=== PATIENT | male | born 1975 | race Caucasian/White ===

== ENCOUNTER 2023-11-01 11:34 | Emergency (ER) | payer BC ==
[~2023-11-01] VITALS: Ht 170.2 cm; Wt 64.0 kg
[2023-11-01 12:02] VITALS: O2SAT 100
[2023-11-01] MEDS: IBUPROFEN 600MG TABLET PO STA (13:26)
[2023-11-01] MEDS ORDERED: NAPR-681 PO (14:26)
[2023-11-01 15:05] VITALS: BP 125/62; PULSE 88; RESP 18; TEMP 97.9
== END 2023-11-01 15:07 | disposition home or self-care (01) ==
LOC: ER 11:34
DX: S93.601A Unspecified sprain of right foot, initial encounter (principal); E11.9 Type 2 diabetes mellitus without complications; I10 Essential (primary) hypertension; W50.2XXA Accidental twist by another person, initial encounter; Y93.89 Activity, other specified; Y92.89 Other specified places as the place of occurrence of the external cause; Y99.8 Other external cause status
CPT/HCPCS: 73610; 73630; 99284

== ENCOUNTER 2023-11-24 14:37 | Emergency (ER) | payer SELFPAY ==
[~2023-11-24] VITALS: Ht 167.6 cm; Wt 70.0 kg
[~2023-11-24 14:37] MED LIST: NAPR-681 PO
[2023-11-24 14:41] VITALS: O2SAT 100
[2023-11-24] MEDS ORDERED: TETANUS, DIPHTHERIA, PERTUSSIS VAC/PF 0.5ML (>10YR OLD) IM ONE (15:30)
[2023-11-24] MEDS ORDERED: IBUPROFEN 600MG TABLET PO ONE (15:30)
[2023-11-24] MEDS ORDERED: CEPH500T MT (16:03)
[2023-11-24] MEDS ORDERED: IBUP-2029 PO (16:03)
[2023-11-24] MEDS ORDERED: NEOM28.43 TP (16:03)
[2023-11-24] MEDS: TETANUS, DIPHTHERIA, PERTUSSIS VAC/PF 0.5ML (>10YR OLD) IM ONE (17:35)
[2023-11-24] MEDS: BACITRACIN ZINC OINT UDPKT TOP NR (17:35)
[2023-11-24] MEDS: IBUPROFEN 600MG TABLET PO NR (17:35)
[2023-11-24 17:36] VITALS: BP 128/77; PULSE 80; RESP 16; TEMP 98.6
== END 2023-11-24 18:02 | disposition home or self-care (01) ==
LOC: ER 14:37
DX: S61.307A Unspecified open wound of left little finger with damage to nail, initial encounter (principal); Z79.899 Other long term (current) drug therapy; W26.8XXA Contact with other sharp object(s), not elsewhere classified, initial encounter; Y93.89 Activity, other specified; Y92.89 Other specified places as the place of occurrence of the external cause; Y99.8 Other external cause status
CPT/HCPCS: 73140; 90715; 90471; 99283; Z7610

== ENCOUNTER 2024-09-23 15:09 | Emergency (ER) | payer BC, OTHER ==
[~2024-09-23] VITALS: Ht 165.1 cm; Wt 68.0 kg
[~2024-09-23 15:09] MED LIST changes: +CEPH500T MT; +IBUP-2029 PO; +NEOM28.43 TP
[2024-09-23 15:13] VITALS: O2SAT 99
[2024-09-23 15:22] VITALS: BP 121/78; PULSE 78; RESP 16; TEMP 36.8; O2SAT 100
[2024-09-23] MEDS ORDERED: ISOP30DR12 EACH EAR (21:40)
== END 2024-09-24 00:03 | disposition home or self-care (01) ==
LOC: ER 15:09
DX: H61.20 Impacted cerumen, unspecified ear (principal); I10 Essential (primary) hypertension; E11.9 Type 2 diabetes mellitus without complications; Z79.899 Other long term (current) drug therapy
CPT/HCPCS: 69209; 99282